=== PATIENT | female | born 1975 | race Hispanic/Latino ===

== ENCOUNTER 2020-03-26 21:32 | Emergency (ER) | payer SELFPAY ==
[2020-03-26] MEDS ORDERED: KETOROLAC 30 MG/ML INJ ONE (22:04)
[2020-03-26] MEDS ORDERED: NA CHLORIDE 0.9% 1,000 ML ONE (22:04)
[2020-03-26] MEDS ORDERED: DIPHENHYDRAMINE 50 MG/ML VIAL ONE (22:04)
[2020-03-26] MEDS ORDERED: ONDANSETRON 4 MG/2 ML VIAL ONE (22:04)
[2020-03-26 22:09] LABS: Urine Blood 3+ (NEG); Urine Glucose NEGATIVE (NEG); Urine Protein 1+ (NEG); Urine Specific Gravity >1.030 (1.005-1.030)
[2020-03-26] MEDS ORDERED: MORPHINE 2 MG/ML SYR ONE (23:09)
--- NOTE | 2020-03-26 23:30 | ER ---
Nurse's Notes [facility] Name: Emilie Luu Age: 44 yrs Sex: Female : 1975 Arrival Date: 03/26/2020 Time: 21:34 Bed 20 Private MD: Diagnosis: Headache;Tension-type headache, unspecified, not intractable Presentation: 03/26 21:40 Chief complaint: Patient states: Reports about an hour she started having headache that ea worsened reports pain 10 of 10 and goes to the back of her neck, pt reports pain is causing her to have nausea. Coronavirus screen: At this time, the client does not indicate any symptoms associated with coronavirus-19. Ebola Screen: No symptoms or risks identified at this time. Initial Sepsis Screen: Does the patient meet any 2 criteria? No. Patient's initial sepsis screen is negative. Does the patient have a suspected source of infection? No. Patient's initial sepsis screen is negative. Risk Assessment: Do you want to hurt yourself or someone else? Patient reports no desire to harm self or others. Onset of symptoms was March 26, 2020. 21:40 Method Of Arrival: Wheelchair ea 21:40 Acuity: DAYNA 3 ea Triage Assessment: 22:07 Headache History: The patient has had previous headaches and this one is different than ea previous episodes, and this one is more severe than previous episodes. General: Appears uncomfortable, Behavior is restless. Pain: Complains of pain in occipital area and base of the skull Pain does not radiate. Pain currently is 10 out of 10 on a pain scale. Pain began 1 hour ago. Also complains of nausea. Neuro: Level of Consciousness is awake, alert, obeys commands, Oriented to person, place, time, Speech is normal, Facial symmetry appears normal. 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 - Social history:: Smoking status: Patient denies any tobacco usage or history of. Screenin:04 Abuse screen: Denies threats or abuse. Nutritional screening: No deficits noted. ea Tuberculosis screening: No symptoms or risk factors identified. Fall Risk IV access (20 points). Assessment: 22:08 General: Appears uncomfortable, Behavior is restless. Pain: Complains of pain in base ea of the skull and occipital area. Neuro: Level of Consciousness is awake, alert, obeys commands, Oriented to person, place, time, situation. Cardiovascular: Patient's skin is warm and dry. Respiratory: Airway is patent Respiratory effort is even, unlabored, Respiratory pattern is regular, symmetrical. Derm: Skin is pink, warm \T\ dry. 22:11 Reassessment: Pt taken to CT. ea 23:18 Reassessment: Patient and/or family updated on plan of care and expected duration. Pain ea level reassessed. Pt resting with eyes closed, respirations even and unlabored, chest expansions even and symmetrical. 23:44 Reassessment: Patient and/or family updated on plan of care and expected duration. Pain ea level reassessed. Patient is alert, oriented x 3, equal unlabored respirations, skin warm/dry/pink. Discharge instruction given to patient, and family, verbalized the understaining of instruction. Pt left via wheelchair per significant other. Vital Signs: 21:40 BP 168 / 94; Pulse 67; Resp 18; Temp 97.7; Pulse Ox 100% ; Weight 92.99 kg; Height 5 ea ft. 2 in. (157.48 cm); Pain 10/10; 23:03 BP 141 / 85; Pulse 61; Resp 17; Pulse Ox 98% ; ea 21:40 Body Mass Index 37.49 (92.99 kg, 157.48 cm) ea Jessa Coma Score: 23:02 Eye Response: spontaneous(4). Verbal Response: oriented(5). Motor Response: obeys tw4 commands(6). Total: 15. ED Course: 21:34 Patient arrived in ED. bp1 21:42 Luis F Akers MD is Attending Physician. tw4 21:47 Sivan Novak, ASHKAN is Primary Nurse. ea 21:55 Inserted saline lock: 20 gauge in right antecubital area, using aseptic technique. ea 22:04 Patient has correct armband on for positive identification. Bed in low position. Call ea light in reach. Side rails up X2. Adult w/ patient. secured entrance monitor on. Pulse ox on. NIBP on. 22:05 Arm band placed on right wrist. Patient placed in an exam room, on a stretcher, on ea pulse oximetry. 22:07 Triage completed. ea 22:25 CT Head Brain wo Cont In Process Unspecified. EDMS 23:45 No provider procedures requiring assistance completed. IV discontinued, intact, ea bleeding controlled, No redness/swelling at site. Administered Medications: 21:56 Drug: Zofran (Ondansetron) 4 mg Route: IVP; Site: right antecubital; ea 23:03 Follow up: Response: No adverse reaction ea :58 Drug: Benadryl 25 mg Route: IVP; Site: right antecubital; ea 23:03 Follow up: Response: No adverse reaction ea :58 Drug: NS 0.9% 1000 ml Route: IV; Rate: 1 bolus; Site: right antecubital; ea 23:46 Follow up: Response: No adverse reaction; IV Status: Completed infusion; IV Intake: ea 1000ml 22:04 Drug: TORadol 30 mg Route: IVP; Site: right antecubital; ea 23:02 Follow up: Response: No adverse reaction; Pain is decreased ea 23:02 Drug: morphine 2 mg {Note: rass 0.} Route: IVP; Site: right antecubital; ea 23:40 Follow up: Response: No adverse reaction; Pain is decreased; RASS: Alert and Calm (0) ea Intake: 23:46 IV: 1000ml; Total: 1000ml. ea Outcome: 23:30 Discharge ordered by MD. cueto 23:45 Discharged to home ambulatory, with family. ea 23:45 Condition: stable 23:45 Discharge instructions given to patient, family, Instructed on discharge instructions, follow up and referral plans. medication usage, Demonstrated understanding of instructions, follow-up care, medications, Prescriptions given X 3. 23:46 Patient left the ED. ea Signatures: Dispatcher [employer] Sivan Palma, RN RN Luis F Bourgeois MD MD twMindy Santillan bp1
--- NOTE | 2020-03-26 23:31 | EDPHYS ---
Physician Documentation [facility] Name: Emilie Luu Age: 44 yrs Sex: Female : 1975 Arrival Date: 03/26/2020 Time: 21:34 Bed 20 Private MD: ED Physician Luis F Akers HPI: 03/26 22:42 This 44 yrs old Female presents to ER via Wheelchair with complaints of tw4 Headache. 22:42 The patient complains of pain to the left base of the skull and right base of the tw4 skull. The patient describes the headache as pounding, a pressure. Onset: The symptoms/episode began/occurred today. Associated signs and symptoms: The patient has no apparent associated signs or symptoms. Severity of symptoms: At its worst the pain was moderate, in the emergency department the pain is unchanged. The patient has not experienced similar symptoms in the past. 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 - Social history:: Smoking status: Patient denies any tobacco usage or history of. ROS: 22:42 Constitutional: Negative for fever, chills, and weight loss, Eyes: Negative for injury, tw4 pain, redness, and discharge, Cardiovascular: Negative for chest pain, palpitations, and edema, Respiratory: Negative for shortness of breath, cough, wheezing, and pleuritic chest pain, Abdomen/GI: Negative for abdominal pain, nausea, vomiting, diarrhea, and constipation, Back: Negative for injury and pain, MS/Extremity: Negative for injury and deformity, Skin: Negative for injury, rash, and discoloration. 22:42 Neuro: Positive for headache. Exam: 22:42 Constitutional: This is a well developed, well nourished patient who is awake, alert, tw4 and in no acute distress. Head/Face: Normocephalic, atraumatic. Cardiovascular: Regular rate and rhythm with a normal S1 and S2. No gallops, murmurs, or rubs. Normal PMI, no JVD. No pulse deficits. Respiratory: Lungs have equal breath sounds bilaterally, clear to auscultation and percussion. No rales, rhonchi or wheezes noted. No increased work of breathing, no retractions or nasal flaring. Abdomen/GI: Soft, non-tender, with normal bowel sounds. No distension or tympany. No guarding or rebound. No evidence of tenderness throughout. Back: No spinal tenderness. No costovertebral tenderness. Full range of motion. MS/ Extremity: Pulses equal, no cyanosis. Neurovascular intact. Full, normal range of motion. Neuro: Awake and alert, GCS 15, oriented to person, place, time, and situation. Cranial nerves II-XII grossly intact. Motor strength 5/5 in all extremities. Sensory grossly intact. Cerebellar exam normal. Normal gait. Vital Signs: 21:40 BP 168 / 94; Pulse 67; Resp 18; Temp 97.7; Pulse Ox 100% ; Weight 92.99 kg; Height 5 ea ft. 2 in. (157.48 cm); Pain 10/10; 23:03 BP 141 / 85; Pulse 61; Resp 17; Pulse Ox 98% ; ea 21:40 Body Mass Index 37.49 (92.99 kg, 157.48 cm) ea [place] Coma Score: 23:02 Eye Response: spontaneous(4). Verbal Response: oriented(5). Motor Response: obeys tw4 commands(6). Total: 15. MDM: 21:45 Patient medically screened. tw4 23:02 Differential diagnosis: hypertensive headache, migraine, subarachnoid bleed, subdural tw4 hematoma, temporal arteritis, tension headache. Data reviewed: vital signs, nurses notes. Counseling: I had a detailed discussion with the patient and/or guardian regarding: the historical points, exam findings, and any diagnostic results supporting the discharge/admit diagnosis. Medication response: Toradol partially relieved the patient's pain. Response to treatment: the patient's symptoms have mildly improved after treatment, and as a result, I will. 03/26 22:02 Order name: Urine --Ancillary (enter results); Complete Time: 22:25 tt3 03/26 22:25 Interpretation: Normal except: USPGR >1.030. tw4 03/26 22:02 Order name: Urine Dipstick--Ancillary (enter results); Complete Time: 22:25 tt3 03/26 22:25 Interpretation: UBLD 3+; UPROT 1+. tw4 03/26 21:46 Order name: CT Head Brain wo Cont tw4 Administered Medications: 21:56 Drug: Zofran (Ondansetron) 4 mg Route: IVP; Site: right antecubital; ea 23:03 Follow up: Response: No adverse reaction ea 21:58 Drug: Benadryl 25 mg Route: IVP; Site: right antecubital; ea 23:03 Follow up: Response: No adverse reaction ea 21:58 Drug: NS 0.9% 1000 ml Route: IV; Rate: 1 bolus; Site: right antecubital; ea 23:46 Follow up: Response: No adverse reaction; IV Status: Completed infusion; IV Intake: ea 1000ml 22:04 Drug: TORadol 30 mg Route: IVP; Site: right antecubital; ea 23:02 Follow up: Response: No adverse reaction; Pain is decreased ea 23:02 Drug: morphine 2 mg {Note: rass 0.} Route: IVP; Site: right antecubital; ea 23:40 Follow up: Response: No adverse reaction; Pain is decreased; RASS: Alert and Calm (0) ea Disposition: 03/26/20 23:30 Discharged to Home. Impression: Headache, Tension-type headache, unspecified, not intractable. - Condition is Stable. - Discharge Instructions: General Headache Without Cause, Tension Headache, Adult. - Prescriptions for Fiorinal 50- 325-40 mg Oral Capsule - take 1 capsule by ORAL route every 4 hours As needed - not to exceed 6 capsules per day; 20 capsule. Ibuprofen 800 mg Oral Tablet - take 1 tablet by ORAL route every 8 hours As needed take with food; 30 tablet. Zofran 4 mg Oral Tablet - take 1 tablet by ORAL route every 12 hours As needed; 6 tablet. - Medication Reconciliation Form, Thank You Letter, Antibiotic Education, Prescription Opioid Use form. - Follow up: Private Physician; When: Upon discharge from the Emergency Department; Reason: Recheck today's complaints, Continuance of care, Re-evaluation by your physician. - Problem is new. - Symptoms have improved. Signatures: Dispatcher [employer] EDSivan Anna RN RN ea Wadley, Terrence, MD MD tw4 Corrections: (The following items were deleted from the chart) 23:46 23:30 03/26/2020 23:30 Discharged to Home. Impression: Headache; Tension-type headache, ea unspecified, not intractable. Condition is Stable. Forms are Medication Reconciliation Form, Thank You Letter, Antibiotic Education, Prescription Opioid Use. Follow up: Private Physician; When: Upon discharge from the Emergency Department; Reason: Recheck today's complaints, Continuance of care, Re-evaluation by your physician. Problem is new. Symptoms have improved. tw4
[2020-03-26 23:57] VITALS: TEMP 97.7
[2020-03-27 00:36] VITALS: BP 141/85; O2SAT 98
--- NOTE | 2020-03-27 11:22 | RAD REPORT ---
EXAM DESCRIPTION: CT - Head Brain Wo Cont - 03/27/2020 4:14 am CLINICAL HISTORY: 44 years Female PAIN COMPARISON: None TECHNIQUE: Images were obtained in axial, sagittal, and coronal planes. This exam was performed according to our departmental dose-optimization program which includes use of Automated Exposure Control, adjustment of the mA and/or kV according to patient size and/or use o f iterative reconstruction technique. FINDINGS: Ventricular system appears normal. No abnormal areas of increased attenuation seen. No extra-axial fluid collections noted. No evidence for skull fracture. Symmetric aeration of mastoid air cells bilaterally. Unremarkable par anasal sinuses. IMPRESSION: No acute intracranial abnormality. No evidence for hemorrhage, mass lesion, or large acu te infarction. Electronically signed by: Esther Jacob MD 03/26/2020 10:31 PM CDT Due to temporary technical issues with the PACS/Fluency reporting system, reports are being signed by the in house radiologist without review as a courtesy to ensure prompt reporting. The interpreting r adiologist is fully responsible for the content of the report.
== END 2020-03-26 23:46 | disposition home or self-care (01) ==
LOC: ER 21:32
DX: G44.209 Tension-type headache, unspecified, not intractable (principal)
CPT/HCPCS: 70450; 81003; 81025; 96361; 96374; 96375; 99284; J1200; J2270; J2405; J7030